=== PATIENT | male | born 1955 | race Caucasian/White ===

== ENCOUNTER 2019-07-16 09:43 | Outpatient (CLI) | payer OTHER ==
--- NOTE | 2019-07-16 11:42 | RAD ---
LEFT KNEE 3 VIEWS: Date: 07/16/2019 HISTORY: Arthritis. Knee pain. FINDINGS: Mild loss of medial joint space. Marginal osteophytes are seen involving both medial and lateral join t spaces, more prominent medially, with prominent osteophytes from the medial femoral condyle. Mild o steophytes from the patella. No evidence of joint effusion. No fracture. IMPRESSION: Mild to moderate degenerative changes. POS: [facility]
== END 2019-07-16 09:44 | disposition home or self-care (01) ==
LOC: BICRAD 09:43
PROVIDERS: ATTEND Orthopaedic Surgery
DX: M17.12 Unilateral primary osteoarthritis, left knee (principal)

== ENCOUNTER → 2019-10-18 | Outpatient (CLI) | payer BC, OTHER ==
[2019-10-18 18:48] LABS: SARS-CoV-2 MS2 Positive; SARS-CoV-2 N Gene Negative; SARS-CoV-2 S Gene Negative; SARS-CoV-2 orf1ab Negative
== END ==
LOC: LAB 14:17
PROVIDERS: ATTEND Internal Medicine Gastroenterology
DX: Z01.812 Encounter for preprocedural laboratory examination (principal); Z11.59 Encounter for screening for other viral diseases; R13.10 Dysphagia, unspecified
CPT/HCPCS: 87635; U0003

== ENCOUNTER → 2019-10-21 | Day surgery (SDC) | payer BC ==
--- NOTE | 2019-10-21 14:09 | RAD ---
EXAM: XR Barium Swallow Esophagus PROVIDED CLINICAL HISTORY: Dysphagia. Diagnosis of achalasia. COMPARISON: 10/23/2012. FINDINGS: Thin liquid barium was administered during the examination with the patient in oblique and AP positio ns. The esophagus is mildly dilated with contrast persisting in the distal esophagus just proximal to the GE junction without contrast extending into the stomach. Patient was given a small amount of w ater, and contrast readily flowed into the stomach. Barium was again administered with persistent hold up at the GE junction, contrast again would not flow into the stomach until water was administer ed. Findings may be related to patient's history of achalasia. Given esophageal dilatation and difficulty in contrast traversing the region of the GE junction, no additional contrast was administe red. Mild tertiary contractions are seen in the distal esophagus. 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 The lungs are clear. Degenerative changes are seen in the spine. IMPRESSION: 1. Dilated esophagus with narrowing at the distal esophagus, and contrast does not extend into the st omach until administration of water. Findings may be related to patient's history of achalasia. Endoscopy would be helpful to ensure there is no lesion at the GE junction which is not appreciated o n this exam. 2. Mild tertiary contractions of the esophagus.
== END ==
LOC: ENDO/OP 07:32 → EDSTATUS 09:00
PROVIDERS: ATTEND Internal Medicine Gastroenterology
DX: K22.0 Achalasia of cardia (principal)
CPT/HCPCS: 74220; 91010

== ENCOUNTER 2020-03-03 14:52 | Outpatient (CLI) | payer BC ==
[~2020-03-03 14:52] MED LIST: Iopamidol-370 76% 500 ML 1 ML ONE
--- NOTE | 2020-03-03 16:25 | CT ---
CT NECK WITH CONTRAST: 03/03/20 INDICATIONS: Neck pain. Right sided neck pain according to technologist's history. FINDINGS: The parotid glands, submandibular glands, and thyroid appear unremarkable. Nasopharynx unremarkable. Oropharynx and base of tongue unremarkable. Genioglossus and geniohyoid complex appear unremarkable. Waldeyer's ring is unremarkable. Small tonsilith in the right palatine tonsil is noted. Century ton sils are not enlarged. Hypopharynx unremarkable. Larynx unremarkable. Office Secretary space, parapharyngeal space, and retropharyngeal space unremarkable. Carotid space unremarkable with mil atherosclerotic change in the carotid bulbs. There is no evidence of internal carotid artery stenosis. Review of lymph node levels show nonspecific level I submandibular nodes which are subcentimeter. The level II nodes are nonspecific with nonspecific IIa and IIb nodes bilaterally. No significant level III, IV or V nodes. Moderate degenerative changes in the cervical spine with prominent anterior osteophytes and degenerat abdulkadir disc changes. Mild posterior spondylosis. Foraminal stenosis on the right at C3-4. The paranasal sinuses and mastoids are clear. IMPRESSION: 1. There are moderate degenerative changes in the cervical spine with prominent anterior bridgin g osteophytes and degenerative disc changes and foraminal stenosis as described above. This may be re lated to patient's neck pain and recommend clinical correlation. 2. No soft tissue abnormality identified. POS: [facility]
== END 2020-03-03 14:53 | disposition home or self-care (01) ==
LOC: BICCT 14:52
PROVIDERS: ATTEND Specialist
DX: M54.2 Cervicalgia (principal); M47.812 Spondylosis without myelopathy or radiculopathy, cervical region; M50.30 Other cervical disc degeneration, unspecified cervical region; M48.02 Spinal stenosis, cervical region
CPT/HCPCS: 70491; Q9967

== ENCOUNTER 2020-07-26 09:40 | Outpatient (CLI) | payer BC | END 2020-07-26 09:41 | disposition home or self-care (01) | LOC: ULT 09:40 | PROVIDERS: ATTEND Family Medicine | DX: R07.81 Pleurodynia (principal); R10.11 Right upper quadrant pain | CPT/HCPCS: 76705 ==